=== PATIENT | male | born 2000 | race Asian ===

== ENCOUNTER 2022-05-21 16:17 | Emergency (ER) | payer OTHER, SELFPAY ==
[2022-05-21 16:20] VITALS: BP 147/94; PULSE 105; RESP 16; TEMP 36.8; O2SAT 99; BMI 26.9
--- NOTE | 2022-05-21 18:24 | EX.ED.DYSGE1 ---
HPI History of Present Illness Chief Complaint: General Illness Narrative Narrative: 21-year-old male presenting with difficulty sleeping. Patient states that he is from [place] and transferred to [facility]. He states that he was told that he cannot have his own room unless he has medical necessity to do so. He states he previously had documented sleep apnea from [place] but states that his doctor from [place] of COVID. He does not have any documentation. Patient does state he has health insurance. PFSH PFSH Medical History no medical history Allergy/AdvReac Type Severity Reaction Status Date / Time No Known Allergies Allergy Verified 05/21/22 16:20 Surgical History no surgical history Social History Smoking Status: Never smoker ROS ROS ED ROS Narrative Daytime fatigue Constitutional Constitutional ED: Denies chills, fever(s) or sweats Eyes Eyes: Denies blurry vision or change in vision ENT ENT ED: Denies ear pain or sore throat Cardiovascular Cardiovascular: Denies chest pain, palpitations or racing heartbeat Respiratory/Chest Respiratory/Chest: Denies cough, dyspnea or sputum Gastrointestinal Gastrointestinal: Denies abdominal pain, constipation, diarrhea, nausea or vomiting Genitourinary Genitourinary ED: Denies dysuria, hematuria or urinary frequency Musculoskeletal Musculoskeletal: Denies arthralgias, myalgias or neck pain Integumentary Denies abscess, Abrasions or rash Neurologic Neurologic: Denies headache(s), paresthesias or weakness Psychiatric Psychiatric: Denies anxiety, depression, suicidal ideation or suicidal thoughts Endocrine Endocrinology: Denies polydipsia or polyuria EXAM Physical Exam Const Vital Signs: 05/21/22 16:20 05/21/22 17:38 Temperature 98.2 F Temperature Source Temporal Pulse Rate 105 H Respiratory Rate 16 Respiratory Effort Normal Respiratory Pattern Normal Blood Pressure 147/94 H Blood Pressure Mean 111 Pulse Ox 99 Oxygen Delivery Method Room Air Positive well nourished General Appearance ED: NAD HEENT Reports moist mucous membranes Eyes PERRL and EOMs intact bilaterally General Eye ED: Negative for pale conjunctiva or scleral icterus Neck No no lymphadenopathy Resp normal respiratory effort and clear to auscultation bilaterally Cardio regular rate and regular rhythm GI normal to inspection, nondistended, normoactive bowel sounds Extremity normal to inspection General Extremety ED: Negative for edema or tenderness General Extremity: Negative for edema Neuro oriented x3 and CN's II-XII intact bilaterally Sensorium / Orientation: alert Motor Exam: strength 5/5 throughout Psych mental status grossly normal Skin no rashes or lesions noted and no wounds MDM MDM MDM Narrative Medical decision making narrative: Patient presenting with history of sleep apnea. He states he needs a doctor to sign off on him having his own room. I did relationship counselor him that he will need to get follow-up as an outpatient with a primary care physician. He will probably need to repeat a sleep study since the one from [place] is distant and his physician is now . I did have social work come see him and give him some resources. He also has health insurance I did tell him to look on his insurance card to see who is in his network locally. Impression: 1. Insomnia Lab Data Attestation: I reviewed the patient's lab results. Discharge Plan Triage Chief Complaint: General Illness ED Provider: Matthew Dennis Dx/Rx/DC Orders Instructions: ED Insomnia Primary Care Provider: Care Physician,No Primary Referrals: Shanda Don MD [Med Staff - Active Staff] - 3-5 Days Care Physician,No Primary [Primary Care Provider] - Disposition Disposition: Home, Self Care
[2022-05-21 18:49] VITALS: BP 124/78; PULSE 78; RESP 16; TEMP 37.2; O2SAT 99
--- NOTE | 2022-05-21 22:03 | CM.ED ---
Social Work Note Referral Source: MD Dennis Referral Reason: No PCP MD Dennis informed SW patient was encouraged to come to ED by [facility] to get a doctors note regarding sleep issues that would support patient's request for his own room. [place] the [place] but was evaluated by previous doctor for sleep issues prior to that doctor passing away from [facility]. SW to follow up as reports he is unable to write a note. SW met with patient and introduced herself and role as [facility] Area Field Person. Patient was agreeable to meet with SW. SW inquired about patient's insurance as well as current PCP. Patient showed SW picture of his insurance card and reported having no PCP in [place]. SW provided patient with list on in network PCPs accepting new patients in the [place] area from his insurance website. SW encouraged patient to follow up with a PCP to discuss concerns and needs for further evaluation. Patient voiced understanding and no other concerns. SW remains available if other needs arise. Cheyenne Sparrow COMMUNITY DIRECTOR, VICKEY
== END 2022-05-21 18:50 | disposition home or self-care (01) ==
PROVIDERS: Emergency Provider Student in an Organized Health Care Education/Training Program; Visit Provider Student in an Organized Health Care Education/Training Program
DX: G47.00 Insomnia, unspecified (principal)
CPT/HCPCS: 99282